=== PATIENT | female | born 2000 | race Caucasian/White ===

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

== ENCOUNTER 2022-07-19 10:32 | Emergency (ER) | payer BC ==
[~2022-07-19] VITALS: Ht 172.7 cm; Wt 59.0 kg
[2022-07-19 10:43] VITALS: BP 124/76
--- NOTE | 2022-07-19 11:00 | NUR ---
PATIENT ELOPED FROM FACILITY. DISCHARGE INSTRUCTIONS NOT GIVEN TO PATIENT. DR. BASSETT NOTIFIED.
--- NOTE | 2022-07-19 11:00 | NUR ---
PT SEEN WALKING OUT OF HOSPITAL WITH MOTHER ON [facility]
== END 2022-07-19 11:00 | disposition left against medical advice (07) ==
LOC: MED 10:32
DX: M79.662 Pain in left lower leg (principal); J45.909 Unspecified asthma, uncomplicated
CPT/HCPCS: 99281